=== PATIENT | female | born 2000 | race Caucasian/White ===

== ENCOUNTER 2021-11-03 16:14 | Emergency (ER) | payer OTHER ==
[~2021-11-03] VITALS: Ht 157.5 cm; Wt 55.5 kg
[2021-11-03 17:51] LABS: HEMATOCRIT 40.2 % (35.0-45.0); HEMOGLOBIN 13.8 g/dL (12.0-15.0); MEAN CELL VOLUME 90 fl (78-95); MEAN CORPUSCULAR HEMOGLOBIN 31 pg (26-32); MEAN CORPUSCULAR HGB CONC 34 g/dL (33-37); MEAN PLATELET VOLUME 9.3 fl (7.4-10.4); PLATELET COUNT 253 K/mm3 (130-400); RED BLOOD COUNT 4.47 M/mm3 (4.10-5.30); RED CELL DISTRIBUTION WIDTH 12.7 % (11.5-14.5); WHITE BLOOD COUNT 14.4 K/mm3 (4.8-10.8)
[2021-11-03 18:02] LABS: ALBUMIN 4.5 g/dL (3.5-5.0); POTASSIUM 3.6 mmol/L (3.5-5.1)
[2021-11-03 18:03] LABS: CALCIUM 9.3 mg/dL (8.3-10.5)
[2021-11-03 18:05] LABS: TOTAL PROTEIN 8.1 g/dL (6.4-8.3)
[2021-11-03 18:06] LABS: TOTAL BILIRUBIN 0.9 mg/dL (0.2-1.2)
[2021-11-03 18:12] LABS: LYMPHOCYTE 3 % (20-51); NEUTROPHILS 91 % (42-75)
[2021-11-03 18:13] LABS: MONOCYTE 6 % (1-10)
[2021-11-03 19:04] LABS: URINE APPEARANCE CLEAR; URINE BILIRUBIN 1+ (NEGATIVE); URINE COLOR YELLOW; URINE GLUCOSE NEGATIVE (NEGATIVE); URINE KETONE 3+ (NEGATIVE); URINE PROTEIN(semi-quant) 2+ (NEGATIVE); URINE UROBILINOGEN NORMAL (NORMAL)
[2021-11-03 19:05] LABS: URINE BLOOD TRACE (NEGATIVE); URINE LEUKOCYTE ESTERASE NEGATIVE (NEGATIVE); URINE MUCUS PRESENT (NOT PRESENT); URINE NITRATE NEGATIVE (NEGATIVE)
[2021-11-03] MEDS ORDERED: ZOFRAN ODT4 MG PO (21:41)
[2021-11-03] MEDS ORDERED: PRILOSEC OTC20 MG PO (21:41)
[2021-11-03 21:47] VITALS: BP 124/77
== END 2021-11-03 21:47 | disposition home or self-care (01) ==
LOC: ED 16:14
PROVIDERS: Physician Assistant
DX: K21.9 Gastro-esophageal reflux disease without esophagitis (principal); R55 Syncope and collapse; D72.829 Elevated white blood cell count, unspecified; Z32.02 Encounter for pregnancy test, result negative